=== PATIENT | female | born 1995 | race Caucasian/White ===

== ENCOUNTER → 2017-09-12 | Outpatient (CLI) | payer OTHER | LOC: M LRY 17:08 | DX: S99.922A Unspecified injury of left foot, initial encounter (principal); X58.XXXA Exposure to other specified factors, initial encounter; Y92.89 Other specified places as the place of occurrence of the external cause; Y93.89 Activity, other specified; Y99.8 Other external cause status | CPT/HCPCS: 73630 ==

== ENCOUNTER → 2018-09-21 | Outpatient (REF) | payer OTHER ==
[~2018-09-21] MED LIST: No Historical Meds
== END ==
LOC: M SFHCLERA 12:11
PROVIDERS: ATTEND Physician Assistant
DX: R50.9 Fever, unspecified (principal)